=== PATIENT | female | born 1995 | race African-American/Black ===

== ENCOUNTER 2023-11-05 08:12 | Emergency (ER) | payer OTHER, MEDICAID, SELFPAY ==
[2023-11-05 08:18] VITALS: BP 137/105; PULSE 92; RESP 16; TEMP 37; O2SAT 99
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
[2023-11-05] MEDS: HYDROcodone/acetaminophen (*CRX) 5-325 MG TABLET 1 TAB PO (08:59)
== END 2023-11-05 10:25 | disposition home or self-care (01) ==
PROVIDERS: Emergency Provider Student in an Organized Health Care Education/Training Program
DX: S01.511A Laceration without foreign body of lip, initial encounter (principal); V43.52XA Car driver injured in collision with other type car in traffic accident, initial encounter
CPT/HCPCS: 12051; 99283; A9270

== ENCOUNTER 2023-11-10 15:18 | Emergency (ER) | payer OTHER, MEDICAID, SELFPAY ==
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
[2023-11-10 15:30] VITALS: BP 141/74; PULSE 76; RESP 17; TEMP 36.7; O2SAT 100
== END 2023-11-10 15:36 | disposition home or self-care (01) ==
LOC: ANHED 15:31
PROVIDERS: Emergency Provider Physician Assistant
DX: S01.511D Laceration without foreign body of lip, subsequent encounter (principal); V49.9XXD Car occupant (driver) (passenger) injured in unspecified traffic accident, subsequent encounter
CPT/HCPCS: 15854; 99281

== ENCOUNTER 2024-11-14 08:57 | Emergency (ER) | payer OTHER, MEDICAID, SELFPAY ==
[2024-11-14 09:08] VITALS: BP 130/85; PULSE 85; RESP 15; TEMP 36.4; O2SAT 99
--- OUTSIDE RECORDS SUMMARY | 2024-11-14 09:12 | XMS_ITS | Clinical Summary ---
Author Organization [facility] Address [address] [place] [address] Care Team Providers Care Needle Valve Operator Name Role Phone Miscellaneous, Not In File Unavailable Unava ilable Allergies No known active allergies Medications sertraline (ZOLOFT) 25 mg tablet Take 1 tablet (25 mg total) by mouth daily 90 tablet 1 Active vit 24-leea-ghpyp-d foreman 27mg iron- 800 mcg-250 mg capsule Take 1 tablet by mouth daily Active ferrous sulfate 325 mg (65 mg of elemental iron) tabletIndicatio ns:Iron Deficiency Anemia Take 1 tablet (325 mg total) by mouth daily with breakfast Active Active Problems Problem Noted Date Diagnosed Date Bacterial vaginosis 08/30/2021 Chlamydial infection 08/30/2021 Gonorrhea 08/30/2021 STD exposure 08/30/2021 Assessment & Plan (08/30/2021 7:06 PM CDT): Will notify pt of lab results as they become available History of chlamydia 08/30/2021 Severe episode of recurrent major depressive disorder, without psychotic features 08/30/2021 Assessment & Plan (08/30/2021 7:07 PM CDT): Will initiate zoloft 25mg every day. She was reminded not to stop it abruptly. She makes pact to report to er if having s/h ideations. Encouraged her to pursue counseling - she will look at [facility] and notify the office if needing assistance/referral. Irregular menses 08/30/2021 Assessment & Plan (08/30/2021 7:05 PM CDT): Will evaluate further with labs and imaging, will notify pt of results as they become available History of ovarian cyst 08/30/2021 Assessment & Plan (08/30/2021 7:05 PM CDT): Will evaluate further with imaging, will notify her of results as they become available Wound, open 07/21/2020 Abnormal uterine bleeding (AUB) 06/10/2020 Echogenic intracardiac focus of fetus on ultrasound 12/18/2017 Surgical History Surgery Date Site/Laterality Comments LEG SURGERY broke leg at age 14 US ABDOMEN COMPLETE W LIVER DOPPLER (C) 06/02/2020 Right Medical History Medical History Date Comments No known health problems Family History Medical History Relation Name Comments Diabetes Father Hypertension Father Diabetes Maternal Grandmother Diabetes Mother Hypertension Mother Sickle cell trait Mother Ovarian cancer Other Great Grandmo ther Diabetes Paternal Grandmother Breast cancer Neg Hx Relation Name Status Comments Father Maternal Grandmother Mother Other Paternal Grandmother Social History Tobacco Use Types Packs/Day Years Used Date Smoking Tobacco: Never Smokeless Tobacco: Never Alcohol Use Standard Drinks/Week Comments No 0 (1 standard drink = 0.6 oz pur e alcohol) Personal Safety Answer Date Recorded Have you ever been in or are you currently in a harmful physical or emotional relationship or is someone making you feel afraid or unsafe? Denies 01/23/2023 Comments No Sex and Gender Information Value Date Recorded Sex Assigned at Not on file Legal Sex Female 8:09 AM CDT Gender Identity Female 12/19/2017 9:13 AM CDT Sexual Orientation Not on file Obstetrics History Para Term AB IAB SAB Ectopic Multiple Livin g Live Births 2 1 1 1 1 Date Outcome GA Total Labor Labor/2nd/3rd Weight Sex Type Anes PTL Kelley A1 A5 Name Clin 2018 Term 38w 1d 2.608 kg (5 lb 12 oz) M Vag-S pont Living Last Filed Vital Signs Vital Sign Reading Time Taken Comments Blood Pressure 128/78 01/23/2023 1:21 AM ORACLE DISTRIBUTION CONSULTANT Pulse 97 01/23/2023 1:21 AM ORACLE DISTRIBUTION CONSULTANT Temperature 36.7 C (98 F) 01/23/2023 1:21 AM ORACLE DISTRIBUTION CONSULTANT Respiratory Rate 18 01/23/2023 1:21 AM ORACLE DISTRIBUTION CONSULTANT Oxygen Saturation 99% 01/23/2023 1:21 AM ORACLE DISTRIBUTION CONSULTANT Inhaled Oxygen Concentration - - Weight 75.3 kg (166 lb) 01/23/2023 1:21 AM ORACLE DISTRIBUTION CONSULTANT Height 165.1 cm (5' 5) 01/23/2023 1:21 AM ORACLE DISTRIBUTION CONSULTANT Body Mass Index 27.62 01/23/2023 1:21 AM ORACLE DISTRIBUTION CONSULTANT Plan of Treatment Health Maintenance Due Date Last Done Comments Cervical Cancer Screening 1996 Depression Screening 1996 Varicella Vaccines (2 of 2 - 2-dose childhood series) 2000 09/25/1997 DTaP/Tdap/Td Vaccine (7 - Td or Tdap) 06/09/2018 06/09/2008, 10/19/2000, 10/19/2000, Additional history exists Regular Well Visit/Exam 18-64 05/20/2022 05/20/2021 HPV Vaccines (1 - 3-dose SCDM series) 09/23/2023 Influenza Vaccine (#1) 2024 03/20/2018 Hepatitis B Screening Completed 07/08/1997 , 07/08/1997, 1996, Additional history exists Hepatitis C Screening Completed 05/20/2021 , 11/07/2017, 11/07/2017 Pneumococcal vaccine <65 Aged Out No longer eligible based on patient's age to complete this topic Procedures Procedure Name Priority Date/Time Associated Diagnosis Comments HEPATITIS C ANTIBODY Routine 05/20/2021 12:42 PM ORACLE DISTRIBUTION CONSULTANT Routine screening for STI (sexually transmitted infection) from Last 3 Months or Most Recently Relevant to Health Maintenance Results * Hepatitis C antibody (05/20/2021 12:42 PM ORACLE DISTRIBUTION CONSULTANT) Hep C Ab Nonreactive Nonreactive DEX WILCOX Comment: Interpretive Data Nonreactive: Antibodies to HCV not detected. Does NOT exclude the possibility of recent exposure to HCV. Equivocal: Equivocal for HCV antibodies. Supplemental molecular testing will be automatically performed to determine infection status in accordance with current CDC screening recommendations. Reactive: Positive for HCV antibodies. This may represent current or past HCV infection. Supplemental molecular testing will be automatically performed to determine current infection status in accordance with current CDC screening recommendations. Interpretive data was last revised on 2019. Blood 05/20/2021 12:4 2 PM ORACLE DISTRIBUTION CONSULTANT 05/20/2021 2:49 PM ORACLE DISTRIBUTION CONSULTANT Mandie Jose MD LAB MICROBIOLOGY - GENERAL ORDER KELLY Final Result DEX [address] [facility] [place] [address] from Last 3 Months or Most Recently Relevant to Health Maintenance Insurance [id number] [place] [address] [facility] PPO [facility] Care Teams Needle Valve Operator Relationship Specialty Start Date End Date Miscellaneous, Not In File 12/10/17
--- NOTE | 2024-11-14 09:32 | ED.WOUNDLAC ---
HPI - Wound/Laceration General Chief Complaint: Wound/Laceration Stated Complaint: finger problem Time Seen by Provider: 11/14/24 09:08 Source: patient Mode of arrival: ambulatory Limitations: no limitations History of Present Illness HPI narrative: Patient is a 29-year-old female who presents the ED with concern for fingernail infection. Patient reports she injured her right 4th 2 weeks ago. Her nail fell off a few days ago and she has since noticed some green/brown discoloration to the proximal lateral and of her nailbed. Concern for infection. Denies significant pain. Denies numbness, drainage, fevers. Related Data Allergies Allergy/AdvReac Type Severity Reaction Status Date / Time No Known Allergies Allergy Verified 11/14/24 09:08 Review of Systems Review of Systems: All systems reviewed & are unremarkable except as noted in HPI. All systems reviewed & are unremarkable except as noted in HPI and below Exam Narrative: GENERAL: Well appearing, well-nourished, non-toxic, in no acute distress. HEAD: Normocephalic, atraumatic. RESPIRATORY: Airway patent, respirations nonlabored. CARDIOVASCULAR: Regular rate and rhythm. Radial pulses easily palpable. MUSCULOSKELETAL: Moves all extremities. No gross deformities. SKIN: Warm, dry, normal color. Nail avulsion to right 4th digit, nail bed with some dark green/brown discoloration to proximal/lateral 1/4 of nailbed. No active purulent drainage. No significant tenderness. No bleeding. NEURO: A&O X3. Speech clear. PSYCHIATRIC: Appropriate mood and affect. Normal interaction. Course Vital Signs Vital signs: Vital Signs Temperature 97.5 F L 11/14/24 09:08 Pulse Rate 85 11/14/24 09:08 Respiratory Rate 15 11/14/24 09:08 Blood Pressure 130/85 11/14/24 09:08 Pulse Oximetry 99 11/14/24 09:08 Oxygen Delivery Room Air 11/14/24 09:08 Temperature 97.5 F L 11/14/24 09:08 Pulse Rate 85 11/14/24 09:08 Respiratory Rate 15 11/14/24 09:08 Blood Pressure 130/85 11/14/24 09:08 Pulse Oximetry 99 11/14/24 09:08 Oxygen Delivery Room Air 11/14/24 09:08 MDM - Wound/Laceration MDM Narrative Medical decision making narrative: Exam with nail avulsion to right 4th digit. Small amount of discoloration to nailbed. Infection versus bruising. Will cover with short course of antibiotics. Patient given further wound care instructions, return precautions. Discharged in stable condition. Medical Records Attestation: I reviewed the patient's medical records. Discharge Plan Discharge Clinical Impression: Avulsion of nail Patient Disposition: Home Condition: Stable Instructions: Antibiotic Form, Nail Avulsion (ED), Nail Removal (ED) Additional Instructions: Take antibiotics as prescribed. You may use warm water soaks to finger. Keep wound bandaged if needed. Return for new or worsening concerns. Patient Language: Serbian Prescriptions: New cephalexin 500 mg capsule 500 mg PO TID 7 Days Qty: 21 0RF No Action ibuprofen 600 mg tablet 600 mg PO TID PRN (Reason: pain) Qty: 20 0RF acetaminophen 500 mg capsule 1,000 mg PO Q6H PRN (Reason: pain) Qty: 20 0RF Follow-up/Referrals: UNKNOWN,DOCTOR [Primary Care Provider] Time of Disposition: 09:33
--- OUTSIDE RECORDS SUMMARY | 2024-11-14 09:40 | XMS_ITS | Clinical Summary ---
Author Organization [facility] Address [address] [place] [address] Care Team Providers Care Ambulance Assistant Name Role Phone Miscellaneous, Not In File Unavailable Unava ilable Allergies No known active allergies Medications sertraline (ZOLOFT) 25 mg tablet Take 1 tablet (25 mg total) by mouth daily 90 tablet 1 Active vit 21-nurc-oodxj-d foreman 27mg iron- 800 mcg-250 mg capsule [...] pursue counseling - she will look at [facility] and notify the office if needing assistance/referral. [...] Comments Blood Pressure 128/78 01/23/2023 1:21 AM FIELD TECHNICAL ASSISTANT Pulse 97 01/23/2023 1:21 AM FIELD TECHNICAL ASSISTANT Temperature 36.7 C (98 F) 01/23/2023 1:21 AM FIELD TECHNICAL ASSISTANT Respiratory Rate 18 01/23/2023 1:21 AM FIELD TECHNICAL ASSISTANT Oxygen Saturation 99% 01/23/2023 1:21 AM FIELD TECHNICAL ASSISTANT Inhaled Oxygen Concentration - - Weight 75.3 kg (166 lb) 01/23/2023 1:21 AM FIELD TECHNICAL ASSISTANT Height 165.1 cm (5' 5) 01/23/2023 1:21 AM FIELD TECHNICAL ASSISTANT Body Mass Index 27.62 01/23/2023 1:21 AM FIELD TECHNICAL ASSISTANT Plan of Treatment Health Maintenance Due Date [...] HEPATITIS C ANTIBODY Routine 05/20/2021 12:42 PM FIELD TECHNICAL ASSISTANT Routine screening for STI (sexually transmitted infection) from Last 3 Months or Most Recently Relevant to Health Maintenance Results * Hepatitis C antibody (05/20/2021 12:42 PM FIELD TECHNICAL ASSISTANT) Hep C Ab Nonreactive Nonreactive DEX WILCOX [...] on 2019. Blood 05/20/2021 12:4 2 PM FIELD TECHNICAL ASSISTANT 05/20/2021 2:49 PM FIELD TECHNICAL ASSISTANT Mandie Jose MD LAB MICROBIOLOGY - GENERAL ORDER KELLY Final Result DEX [address] [facility] Department [place] [address] from Last 3 Months or Most Recently Relevant to Health Maintenance Insurance [id number] [place] [address] [facility] PPO [facility] Care Teams Ambulance Assistant Relationship Specialty Start Date End Date Miscellaneous, Not In File 12/10/17
== END 2024-11-14 10:01 | disposition home or self-care (01) ==
LOC: ANHED 09:39
PROVIDERS: Emergency Provider Physician Assistant
DX: S61.304A Unspecified open wound of right ring finger with damage to nail, initial encounter (principal); X58.XXXA Exposure to other specified factors, initial encounter
CPT/HCPCS: 99283